=== PATIENT | male | born 1980 | race Caucasian/White ===

== ENCOUNTER 2016-09-12 06:34 | Emergency (ER) | payer OTHER, MEDICARE ==
--- NOTE | 2016-09-12 07:28 | ER Document Report ---
HPI - HPI Pain Level: 5 Context: 36 yo male with hx/o chronic back pain, TMJ c/o severe right jaw pain x 2 days. Taking regular pain meds without relief. pt had similar pain 1 month ago. Treated at Urgent Care with abx without relief. Pt denies any dental pain or gingival swelling today. No fever Associated Symptoms: None Exacerbated by: Denies Relieved by: Denies Similar symptoms previously: Yes Recently seen / treated by doctor: No - CONSTITUTIONAL Constitutional: DENIES: Fever, Chills - DERM Skin Color: Normal, [place] Past Medical History - General Information source: Patient - Social History Smoking Status: Never Smoker Frequency of alcohol use: Occasional Drug Abuse: None Lives with: Family Family History: Reviewed & Not Pertinent Patient has suicidal ideation: No Patient has homicidal ideation: No - Past Medical History Cardiac Medical History: Reports: Hx Hypercholesterolemia Denies: Hx Coronary Artery Disease, Hx Heart Attack, Hx Hypertension Pulmonary Medical History: Denies: Hx Asthma - smokers cough green/brown phlegm, Hx Bronchitis, Hx COPD , Hx Pneumonia Neurological Medical History: Reports: Hx Migraine. Denies: Hx Cerebrovascular Accident, Hx Seizures Renal/ Medical History: Denies: Hx Peritoneal Dialysis Musculoskeltal Medical History: Reports Hx Arthritis - back,left knee Past Surgical History: Reports: Hx Orthopedic Surgery - bones removed from R small toe - Immunizations Hx Diphtheria, Pertussis, Tetanus Vaccination: Yes Vertical Provider Document - CONSTITUTIONAL Agree With Documented VS: Yes - INFECTION CONTROL TRAVEL OUTSIDE OF THE [place] IN LAST 30 DAYS: No - HEENT HEENT: Atraumatic, PERRLA Notes: focal pain over left TMJ.+ click. mild swellling. - NECK Neck: Normal Inspection, Supple - RESPIRATORY Respiratory: Breath Sounds Normal, No Respiratory Distress O2 Sat by Pulse Oximetry: 97 - CARDIOVASCULAR Cardiovascular: Regular Rate, Regular Rhythm - GI/ABDOMEN Gastrointestinal: Abdomen Soft - NEURO Level of Consciousness: Awake, Alert, Appropriate - DERM Integumentary: Warm, Dry Course - Re-evaluation Re-evalutation: 09/12/16 07:28 36yo male, tearful, in moderate distress. H&P c/w TMJ. pain not controlled with normal medications 09/12/16 07:36 recommend to increase percocet to 10mg q4prn. follow up with dental for further evaluation and treatment. notify pain management of temporary med increase 09/12/16 07:40 no indication of dental infection on exam - Vital Signs Vital signs: Temp Pulse Resp BP Pulse Ox 97.2 F 85 18 132/86 H 97 09/12/16 06:41 09/12/16 06:41 09/12/16 06:41 09/12/16 06:41 09/12/16 06:41 Discharge - Discharge Clinical Impression: TMJ (temporomandibular joint disorder) Condition: Stable Disposition: HOME, SELF-CARE Instructions: Temporomandibular Joint Syndrome ([facility]), Oral Narcotic Medication ([facility]), Steroid Medication, Warm Packs ([facility]) Additional Instructions: Recommend increasing Percocet to 10mg every 4h until pain eases. Notify pain management immediately Follow up with dental for further evaluation and treatment Prescriptions: Prednisone [Deltasone 20 mg Tablet] 3 tab PO DAILY 5 Days
[2016-09-12 07:56] VITALS: BP 148/89
== END 2016-09-12 07:52 | disposition home or self-care (01) ==
LOC: ER 06:34
DX: M26.621 Arthralgia of right temporomandibular joint (principal); R22.0 Localized swelling, mass and lump, head
CPT/HCPCS: 99283

== ENCOUNTER 2016-12-26 15:16 | Emergency (ER) | payer MEDICARE, OTHER ==
[2016-12-26] MEDS ORDERED: KETOROLAC TROMETHAMINE INJ/PF 30 MG/1 ML SDV IV ONE (15:37)
[2016-12-26] MEDS ORDERED: NORMAL SALINE 1000 ML 1,000 ML IV ONE (15:37)
--- NOTE | 2016-12-26 15:40 | ER Document Report ---
ED Medical Screen (RME) - General Chief Complaint: Abdominal Pain Stated Complaint: ABDOMINAL PAIN/DIARRHEA Time Seen by Provider: 12/26/16 15:36 Mode of Arrival: Ambulatory Information source: Patient - pt. with L inguinal hernia repair several months ago. Has been having increasing lower abdominal pain with diarrhea over the past 4-5 days with possible blood in BM's. TRAVEL OUTSIDE OF THE [place] IN LAST 30 DAYS: No - Related Data Allergies/Adverse Reactions: No Known Allergies Allergy (Verified 12/26/16 15:24) Past Medical History - Past Medical History Cardiac Medical History: Reports: Hx Hypercholesterolemia Denies: Hx Coronary Artery Disease, Hx Heart Attack, Hx Hypertension Pulmonary Medical History: Denies: Hx Asthma - smokers cough green/brown phlegm, Hx Bronchitis, Hx COPD , Hx Pneumonia Neurological Medical History: Reports: Hx Migraine. Denies: Hx Cerebrovascular Accident, Hx Seizures Renal/ Medical History: Denies: Hx Peritoneal Dialysis Musculoskeltal Medical History: Reports Hx Arthritis - back,left knee Past Surgical History: Reports: Hx Orthopedic Surgery - bones removed from R small toe - Immunizations Hx Diphtheria, Pertussis, Tetanus Vaccination: Yes Physical Exam - Vital signs Vitals: Temp Pulse Resp BP Pulse Ox 97.9 F 84 20 113/72 98 12/26/16 15:21 12/26/16 15:21 12/26/16 15:21 12/26/16 15:21 12/26/16 15:21 Course - Vital Signs Vital signs: Temp Pulse Resp BP Pulse Ox 97.9 F 84 20 113/72 98 12/26/16 15:21 12/26/16 15:21 12/26/16 15:21 12/26/16 15:21 12/26/16 15:21
[2016-12-26 16:26] LABS: ABSOLUTE BASOPHILS # (AUTO) 0.1 10^3/uL (0.0-0.2); ABSOLUTE EOSINOPHILS # (AUTO) 0.2 10^3/uL (0.0-0.6); ABSOLUTE LYMPHOCYTES (AUTO) 4.3 10^3/uL (0.5-4.7); ABSOLUTE MONOCYTES (AUTO) 1.1 10^3/uL (0.1-1.4); ABSOLUTE NEUT (AUTO) 6.7 10^3/uL (1.7-8.2); BASOPHILS % (AUTO) 0.6 % (0-2); EOSINOPHILS % (AUTO) 1.2 % (0-6); HEMATOCRIT 50.3 % (37.9-51.0); HEMOGLOBIN 16.8 g/dL (13.5-17.0); HGB HCT DIFFERENCE 0.1; MEAN CORPUSCULAR HEMOGLOBIN 30.8 pg (27.0-33.4); MEAN CORPUSCULAR HGB CONC 33.3 g/dL (32.0-36.0); MEAN CORPUSCULAR VOLUME 93 fl (80-97); MONOCYTES % (AUTO) 8.6 % (3-13); RED BLOOD COUNT 5.43 10^6/uL (4.35-5.55); RED CELL DISTRIBUTION WIDTH 13.6 % (11.5-14.0); SEGMENTED NEUTROPHILS % (AUTO) 54.6 % (42-78); WHITE BLOOD COUNT 12.2 10^3/uL (4.0-10.5)
[2016-12-26 16:31] LABS: APPEARANCE,URINE SLIGHTLY-CLOUDY; BILIRUBIN,URINE SMALL (NEGATIVE); GLUCOSE, URINE NEGATIVE (NEGATIVE); KETONES,URINE NEGATIVE (NEGATIVE); LEUKOCYTE ESTERASE,URINE NEGATIVE (NEGATIVE); NITRITE,URINE NEGATIVE (NEGATIVE); PROTEIN,URINE 30 mg/dL (NEGATIVE); URINE SPECIFIC GRAVITY 1.035; UROBILINOGEN,URINE NEGATIVE mg/dL (<2.0)
[2016-12-26 17:51] LABS: ALANINE AMINOTRANSFERASE 80 U/L (21-72); ALBUMIN 3.8 g/dL (3.5-5.0); ALKALINE PHOSPHATASE 100 U/L (38-126); ANION GAP 9 (5-19); ASPARTATE AMINO TRANSFERASE 60 U/L (17-59); BILIRUBIN,DIRECT 0.4 mg/dL (0.0-0.4); BILIRUBIN,TOTAL 0.6 mg/dL (0.2-1.3); BLOOD UREA NITROGEN 16 mg/dL (7-20); CALCIUM 9.5 mg/dL (8.4-10.2); CARBON DIOXIDE 27 mmol/L (22-30); CHLORIDE 104 mmol/L (98-107); GLUCOSE 84 mg/dL (75-110); LIPASE 57.9 U/L (23-300); POTASSIUM 4.3 mmol/L (3.6-5.0); SODIUM 139.5 mmol/L (137-145); TOTAL PROTEIN 6.9 g/dL (6.3-8.2)
--- NOTE | 2016-12-26 18:28 | ER Document Report ---
ED GI/ - General Chief Complaint: Abdominal Pain Stated Complaint: ABDOMINAL PAIN/DIARRHEA Time Seen by Provider: 12/26/16 15:36 Mode of Arrival: Ambulatory Information source: Patient TRAVEL OUTSIDE OF THE [place] IN LAST 30 DAYS: No - HPI Patient complains to provider of: Abdominal pain, Diarrhea Onset: Other - 4-5 days Quality of pain: Achy, Cramping, Stabbing Severity at maximum: Moderate Severity in ED: Mild, Moderate Pain Level: 4 Location: Suprapubic Associated symptoms: Diarrhea, Nausea Exacerbated by: Denies Relieved by: Denies Similar symptoms previously: No Recently seen / treated by doctor: No Notes: 12/26/16 18:23 Patient is a 36-year-old male with a history of chronic pain, as well as a small left inguinal hernia with previous repair, who presents to the emergency room for 4-5 day of diarrhea with crampy abdominal pain which is stabbing at times generally right before having a bowel movement, he reports an intense pressure in his suprapubic region, which is only relieved by having a bowel movement, he does report that his bowel movements have been consistent with undigested food, he denies any mucus in it, it was read colored 4-5 days ago but he states he was drinking a lot of red colored crystallite at that time, he is unaware of any actual blood in his stools, no sick contacts, no questionable food intake recently, no traveling, no recent antibiotic - Related Data Allergies/Adverse Reactions: No Known Allergies Allergy (Verified 12/26/16 15:24) Past Medical History - General Information source: Patient - Social History Smoking Status: Current Every Day Smoker Chew tobacco use (# tins/day): No Frequency of alcohol use: None Drug Abuse: None Family History: Reviewed & Not Pertinent Patient has suicidal ideation: No Patient has homicidal ideation: No - Past Medical History Cardiac Medical History: Reports: Hx Hypercholesterolemia Denies: Hx Coronary Artery Disease, Hx Heart Attack, Hx Hypertension Pulmonary Medical History: Denies: Hx Asthma - smokers cough green/brown phlegm, Hx Bronchitis, Hx COPD , Hx Pneumonia Neurological Medical History: Reports: Hx Migraine. Denies: Hx Cerebrovascular Accident, Hx Seizures Renal/ Medical History: Denies: Hx Peritoneal Dialysis Musculoskeltal Medical History: Reports Hx Arthritis - back,left knee Past Surgical History: Reports: Hx Orthopedic Surgery - bones removed from R small toe - Immunizations Hx Diphtheria, Pertussis, Tetanus Vaccination: Yes Review of Systems - Review of Systems Constitutional: No symptoms reported EENT: No symptoms reported Cardiovascular: No symptoms reported Respiratory: No symptoms reported Gastrointestinal: See HPI Genitourinary: No symptoms reported Male Genitourinary: No symptoms reported Musculoskeletal: No symptoms reported Skin: No symptoms reported Hematologic/Lymphatic: No symptoms reported Neurological/Psychological: No symptoms reported -: Yes All other systems reviewed and negative Physical Exam - Vital signs Vitals: Temp Pulse Resp BP Pulse Ox 97.9 F 84 20 113/72 98 12/26/16 15:21 12/26/16 15:21 12/26/16 15:21 12/26/16 15:21 12/26/16 15:21 Interpretation: Normal - General General appearance: Appears well, Alert - HEENT Head: Normocephalic, Atraumatic Eyes: Normal Pupils: PERRL - Respiratory Respiratory status: No respiratory distress Chest status: Nontender Breath sounds: Normal Chest palpation: Normal - Cardiovascular Rhythm: Regular Heart sounds: Normal auscultation Murmur: No - Abdominal Inspection: Normal Distension: No distension Bowel sounds: Normal Tenderness: Tender - Mild suprapubic tenderness Organomegaly: No organomegaly - Back Back: Normal, Nontender - Extremities General upper extremity: Normal inspection, Nontender, Normal color, Normal ROM , Normal temperature General lower extremity: Normal inspection, Nontender, Normal color, Normal ROM , Normal temperature, Normal weight bearing. No: Annelise's sign - Neurological Neuro grossly intact: Yes Cognition: Normal Orientation: AAOx4 [place] Coma Scale Eye Opening: Spontaneous [place] Coma Scale Verbal: Oriented [place] Coma Scale Motor: Obeys Commands [place] Coma Scale Total: 15 Speech: Normal Motor strength normal: LUE, RUE, LLE, RLE Sensory: Normal - Psychological Associated symptoms: Normal affect, Normal mood - Skin Skin Temperature: Warm Skin Moisture: Dry Skin Color: Normal Course - Re-evaluation Re-evalutation: 12/26/16 18:25 Imaging findings were discussed with patient at bedside which are relatively unremarkable, he is noted to have a small fat-containing left-sided inguinal hernia which he is aware of and has follow-up with surgery for, he is also noted mild elevation in his AST and ALT which he reports a history of as well, which is generally contributed to fatty liver disease, patient is otherwise resting comfortably, with stable vital signs and in no acute distress, symptoms are likely viral in nature, he will be discharged with prescription for Bentyl as well as Zofran Dosepak and advised to follow-up with his primary care provider or return if symptoms worsen, patient acknowledges understanding and agreement with this plan - Vital Signs Vital signs: Temp Pulse Resp BP Pulse Ox 97.9 F 84 20 113/72 98 12/26/16 15:21 12/26/16 15:21 12/26/16 15:21 12/26/16 15:21 12/26/16 15:21 - Laboratory Result Diagrams: 12/26/16 16:00 12/26/16 17:19 Laboratory results interpreted by me: 12/26/16 12/26/16 12/26/16 16:00 16:00 17:19 WBC 12.2 H AST 60 H ALT 80 H Urine Protein 30 H Urine Bilirubin SMALL H - Diagnostic Test Radiology reviewed: Image reviewed, Reports reviewed Discharge - Discharge Clinical Impression: Hernia, inguinal, left Abdominal pain Qualifiers: Abdominal location: lower abdomen, unspecified Qualified Code(s): R10.30 - Lower abdominal pain, unspecified Diarrhea Qualifiers: Diarrhea type: unspecified type Qualified Code(s): R19.7 - Diarrhea, unspecified Condition: Stable Disposition: HOME, SELF-CARE Instructions: Abdominal Pain ([facility]), Antispasmodics ([facility]), Antinausea Medication ([facility]) Additional Instructions: Follow up with your primary care provider in one to 2 days. Return to the emergency room immediately if symptoms worsen or any additional concerns. Prescriptions: Dicyclomine HCl [Bentyl 20 mg Tablet] 20 mg PO QID #120 tablet
[2016-12-26 19:06] VITALS: BP 118/78
== END 2016-12-26 19:04 | disposition home or self-care (01) ==
LOC: ER 15:16
DX: K40.91 Unilateral inguinal hernia, without obstruction or gangrene, recurrent (principal); R19.7 Diarrhea, unspecified; R10.30 Lower abdominal pain, unspecified; R11.0 Nausea; F17.200 Nicotine dependence, unspecified, uncomplicated; R74.8 Abnormal levels of other serum enzymes
CPT/HCPCS: 99284; 96374; 36415; 83690; 85025; 80053; 81001; 74177; J1885; J7030

== ENCOUNTER → 2017-11-30 | Day surgery (SDC) | payer MEDICARE, OTHER ==
[~2017-11-30] MED LIST: BUPIVACAINE HCL 0.5 % INJ/PF 30 ML SDV ONE; LIDOCAINE 2% INJ (20 MG/ML) 20 ML MDV ONE; METHYLPREDNISOLONE ACETATE INJ 40 MG/1 ML ML ONE
--- NOTE | 2017-11-30 10:02 | Operative Report ---
PREOPERATIVE DIAGNOSIS: Lumbar Spondylosis POSTOPERATIVE DIAGNOSIS: Lumbar Spondylosis PROCEDURE: Radiofrequency Ablation of medial branches - Bilateral L4 and L5 MBN DATE OF PROCEDURE: [11/30/17] ANESTHESIA: [local, po valium] COMPLICATIONS: [none] CONSENT: A full description of the procedure was provided including benefits as well as possible complications. All questions were answered and informed consent was given and signed. ASA guidelines for fasting were verified prior to sedation. PROCEDURE IN DETAIL The patient was brought into the fluoroscopy suite and positioned into the prone position on the fluoroscopy table and allowed to adjust to a position of comfort. A grounding pad was placed on the [LEFT] thigh. The lumbar region was widely prepped with a chloraprep solution, allowed to air dry and draped in standard sterile surgical fashion. Local anesthesia was provided by [1] mL of [1 ]% [lidocaine]delivered with a 25 g needle. A 17g 75mm radiofrequency introducer needle was placed to the planned anatomic targets guided with intermittent fluoroscopy with a perpendicular approach to terminally place at the junction of the superior articular process and the transverse process of the [RIGHT] L5 (L4 MBN) and the base of the sacral ala on the [RIGHT] for the L5 medial branch nerve. The stylets were removed and radiofrequency probes with a 4mm active tip were then inserted. Needle tip position of the probes was verified in the AP, oblique, and lateral views. At each site, the medial branch nerve was stimulated at 2 Hz to a maximum 1-2 volts determined to finalize safe needle and electrode placement. The patient was awake and responsive during this portion of the procedure. Each target was anesthetized with 1-2 mL of [2]% [lidocaine] for anesthesia for lesioning and then each target was lesioned at 80 degrees Celsius for 2 minutes and 30 seconds. Tissue impedences were noted to be between 250 and 500 Ohms. The procedure was performed in the exact same manner on the Left at the same level. After RFA, a solution of 1 cc of 0.25% marcaine and 40mg depomedrol was injected. Electrodes and needles were then removed and bandages placed over the needle placement sites, the patient then returned to the supine position on a stretcher and transported to the recovery room without hemodynamic, neurologic, or allergic reactions. Fluoroscopic images were printed for hard copy recording and digitally archived. POST PROCEDURE EVALUATION: The patient was comfortable in the recovery room. The patient is aware that pain may worsen before remitting and 4 6 weeks may be required prior to the onset of pain relief. IMPRESSION: 1. Technically successful [Bilateral] L4 L5 medial branch radiofrequency neurotomy for denervation without complication. 2. RTC in [6] weeks. 3. Estimated Blood Loss: [1 ml]
== END ==
LOC: RAD 08:55
PROVIDERS: ATTEND Student in an Organized Health Care Education/Training Program
DX: M47.817 Spondylosis without myelopathy or radiculopathy, lumbosacral region (principal)
CPT/HCPCS: 64635; 64636; J3490 ×2; J1020

== ENCOUNTER 2018-05-13 05:35 | Day surgery (SDC) | payer MEDICARE, OTHER ==
--- NOTE | 2018-05-06 09:40 | RADIOLOGY REPORT (SQ) ---
EXAM DESCRIPTION: CHEST PA/LATERAL COMPLETED DATE/TIME: 05/06/2018 9:25 am REASON FOR STUDY: PRE-OP COMPARISON: 05/31/2015 EXAM PARAMETERS: NUMBER OF VIEWS: two views TECHNIQUE: Digital Frontal and Lateral radiographic views of the chest acquired. RADIATION DOSE: NA LIMITATIONS: none FINDINGS: LUNGS AND PLEURA: No opacities, masses or pneumothorax. No pleural effusion. MEDIASTINUM AND HILAR STRUCTURES: No masses or contour abnormalities. HEART AND VASCULAR STRUCTURES: Heart normal size. No evidence for failure. BONES: No acute findings. HARDWARE: None in the chest. OTHER: No other significant finding. IMPRESSION: NO SIGNIFICANT RADIOGRAPHIC FINDING IN THE CHEST. TECHNICAL DOCUMENTATION: JOB ID: [id number] [employer]- All Rights Reserved Reading location - IP/workstation name: [email or web address]
[2018-05-06 09:51] LABS: HEMATOCRIT 44.2 % (37.9-51.0); HEMOGLOBIN 15.3 g/dL (13.5-17.0); MEAN CORPUSCULAR HEMOGLOBIN 31.7 pg (27.0-33.4); MEAN CORPUSCULAR HGB CONC 34.7 g/dL (32.0-36.0); MEAN CORPUSCULAR VOLUME 91 fl (80-97); PLATELET COUNT 296 10^3/uL (150-450); RED BLOOD COUNT 4.84 10^6/uL (4.35-5.55); RED CELL DISTRIBUTION WIDTH 13.5 % (11.5-14.0); WHITE BLOOD COUNT 10.2 10^3/uL (4.0-10.5)
[2018-05-06 10:36] LABS: ALANINE AMINOTRANSFERASE 68 U/L (21-72); ALBUMIN 4.3 g/dL (3.5-5.0); ALKALINE PHOSPHATASE 100 U/L (38-126); ANION GAP 9 (5-19); ASPARTATE AMINO TRANSFERASE 55 U/L (17-59); BILIRUBIN,DIRECT 0.3 mg/dL (0.0-0.4); BILIRUBIN,TOTAL 0.3 mg/dL (0.2-1.3); BLOOD UREA NITROGEN 11 mg/dL (7-20); CARBON DIOXIDE 31 mmol/L (22-30); CHLORIDE 98 mmol/L (98-107); GLUCOSE 170 mg/dL (75-110); POTASSIUM 4.6 mmol/L (3.6-5.0); SODIUM 138.2 mmol/L (137-145); TOTAL PROTEIN 7.5 g/dL (6.3-8.2)
--- NOTE | 2018-05-06 20:55 | EKG REPORT ---
SEVERITY:- NORMAL ECG - SINUS RHYTHM ST ELEV, PROBABLE NORMAL EARLY REPOL PATTERN : Confirmed by: Sarah Bush MD 06-May-2018 20:54:26
[~2018-05-13 05:35] MED LIST changes: -BUPIVACAINE HCL 0.5 % INJ/PF 30 ML SDV ONE; +CEFAZOLIN 2 GM/D5W RTU 2 GM/50 ML RTUPB IV ONE; +CEFAZOLIN 2 GM/D5W RTU 2 GM/50 ML RTUPB IV PRN; +LACTATED RINGERS 1000 ML IV PRN; +LIDOCAINE 0.5% INJ-PF (5 MG/ML) 50 ML SDV SUBCUT PRN; -LIDOCAINE 2% INJ (20 MG/ML) 20 ML MDV ONE; -METHYLPREDNISOLONE ACETATE INJ 40 MG/1 ML ML ONE
[2018-05-13] MEDS ORDERED: MIDAZOLAM 2 MG/2 ML INJ ONE (06:19)
[2018-05-13] MEDS ORDERED: LIDOCAINE 2% INJ-PF (20 MG/ML) 10 ML AMPUL ONE (06:19)
[2018-05-13] MEDS ORDERED: DEXAMETHASONE SOD PHOSPHATE INJ 4 MG/1 ML VIAL ONE (06:19)
[2018-05-13] MEDS ORDERED: FENTANYL CITRATE INJ/PF 250 MCG/5 ML AMPULE ONE (06:19)
[2018-05-13] MEDS ORDERED: ONDANSETRON HCL INJ/PF 4 MG/2 ML SDV ONE (06:20)
[2018-05-13] MEDS ORDERED: ACETAMINOPHEN 1,000 MG/100 ML RTUPB IV ONE (06:20)
[2018-05-13] MEDS ORDERED: PROPOFOL INJ 200 MG/20 ML VIAL IV ONE (06:20)
[2018-05-13] MEDS ORDERED: ALBUTEROL SULFATE 0.083% NEB 2.5 MG/3 ML AMPUL NEB ONE (06:33)
[2018-05-13] MEDS ORDERED: SUGAMMADEX SODIUM 200 MG/2 ML SDV IV ONE (06:44)
[2018-05-13] MEDS ORDERED: BUPIVACAINE HCL 0.5 % INJ/PF 30 ML SDV ONE (06:49)
[2018-05-13] MEDS ORDERED: FENTANYL CITRATE INJ/PF 100 MCG/2 ML AMPUL IV PRN ×6 (08:30→11:48)
[2018-05-13] MEDS ORDERED: PROMETHAZINE HCL INJ 25 MG/1 ML VIAL IV PRN ×4 (08:30→11:48)
[2018-05-13] MEDS ORDERED: MEPERIDINE HCL/PF INJ 25 MG/1 ML DISP.SYRIN IV PRN ×2 (08:30→11:48)
[2018-05-13] MEDS ORDERED: DIPHENHYDRAMINE HCL 50 MG/ML VIAL IV PRN ×2 (08:30→11:48)
[2018-05-13] MEDS ORDERED: ONDANSETRON HCL INJ/PF 4 MG/2 ML SDV IV PRN ×2 (08:30→11:48)
[2018-05-13] MEDS ORDERED: MORPHINE SULFATE 10 MG/ML INJ IV PRN ×2 (08:30→11:48)
[2018-05-13] MEDS ORDERED: SUCCINYLCHOLINE CHLORIDE INJ 200 MG/10 ML VIAL ONE (09:13)
[2018-05-13] MEDS ORDERED: ROCURONIUM BROMIDE INJ 50 MG/5 ML VIAL IV ONE (09:13)
--- NOTE | 2018-05-13 11:11 | Discharge Summary ---
Discharge Summary (SDC) - Discharge Final Diagnosis: Recurrent left inguinal hernia, initial right inguinal hernia, periumbilical incisional hernia. Date of Surgery: 05/13/18 Discharge Date: 05/13/18 Condition: Stable Treatment or Instructions: Discharge home. Diet as tolerated. Activity: No lifting greater than 10 pounds x 6 weeks. Follow up with me in 7-10 days. [place] 10/325 mg p.o. every 6 hours as needed pain. Ibuprofen 800 mg p.o. 3 times daily with meals (OTC). Okay to shower on Wednesday. No tub baths or swimming times 2 weeks. Referrals: ELA HANSON DO [Primary Care Provider] - Discharge Diet: As Tolerated Respiratory Treatments at Home: Deep Breathing/Coughing, Incentive Spirometer Discharge Activity: No Lifting Over 10 Pounds Home Care Assistance: None Needed Report the Following to Your Physician Immediately: Shortness of Breath, Nausea , Vomiting, Increase in Pain, Fever over 101 Degrees, Unusual Bleeding, Redness , Swelling, Warmth, Increased Soreness
[2018-05-13] MEDS: FENTANYL CITRATE INJ/PF 100 MCG/2 ML AMPUL ONE ×2 (11:20→11:46)
[2018-05-13] MEDS ORDERED: KETOROLAC TROMETHAMINE INJ/PF 30 MG/1 ML SDV ONE (11:45)
[2018-05-13] MEDS ORDERED: HYDROCODONE/ACETAMINOPHEN 10-325 MG TABLET PO PRN (12:11)
[2018-05-13] MEDS ORDERED: HYDROCODONE/ACETAMINOPHEN 10-325 MG TABLET ONE (12:31)
[2018-05-13] MEDS ORDERED: IBUPROFEN 800 MG TABLET PO SCH (14:00)
[2018-05-13 14:45] VITALS: BP 126/76
--- NOTE | 2018-05-16 14:14 | Operative Report ---
Nonrecallable Operative Report DATE OF SURGERY: 05/13/18 PREOPERATIVE DIAGNOSIS: 1. Recurrent left inguinal hernia. 2. Initial right inguinal hernia. 3. Incisional, periumbilical ventral hernia. POSTOPERATIVE DIAGNOSIS: Same as above OPERATION: 1. Robot-assisted laparoscopic bilateral inguinal hernia repair with mesh. 2. Open umbilical hernia repair with mesh. SURGEON: DENNIS DAVILA ANESTHESIA: GA TISSUE REMOVED OR ALTERED: None COMPLICATIONS: None apparent ESTIMATED BLOOD LOSS: Minimal PROCEDURE: Drains/implants: 1. right-sided large 3 DMax inguinal hernia mesh. 2. Left-sided large 3 DMax inguinal hernia mesh. 3. 6.[address] hernia patch. Procedure in detail: After informed consent was obtained, the patient was brought to the operating room and laid in the supine position. The area of the abdomen was prepped and draped in a normal sterile fashion. An incision was created within the bounds of a previous supraumbilical incision. Dissection was carried down through the subcutaneous tissue using sharp dissection. The periumbilical incisional hernia was identified and opened. It contained preperitoneal fat. The abdomen was then entered through the hernia defect. The balloon trocar was inserted, and pneumoperitoneum was achieved. Right and left lateral abdominal wall 8 mm robotic trochars were placed under direct laparoscopic visualization. Once this was completed, the robot was brought over the patient and docked appropriately. Dissection was begun in the left groin, as it was the area of recurrence. Dissection was begun 2-3 cm superior to the defect. Peritoneum was scored and opened. A preperitoneal dissection was then undertaken. This was done with great care and was moderately difficult. There was a large amount of scar tissue in the area. The cord structures and old hernia mesh were identified. It appeared that the hernia recurrence had occurred inferior to the mesh. Secondary to that, it was not felt that the mesh needed to be completely excised. The area laterally was completely opened. The medial dissection was somewhat difficult. It was felt that opening the right side would help to complete the medial dissection. Attention was then turned to opening of the right side. The peritoneum was scored 2-3 cm superior to the indirect inguinal hernia defect. Dissection was carried through the preperitoneal plane using sharp dissection, blunt dissection , and electrocautery. The planes on the right side were previously undisturbed , and the dissection was much easier. The dissection was carried medially, so that it connected with the left sided dissection. A large lipoma of the cord was reduced back into the abdominal cavity. The hernia sac was freed from the cord structures, taking great care not to injure the cord structures. Once this was completed attention was again turned to the left side. A left sided large 3 DMax inguinal hernia mesh was placed into the abdominal cavity. After adequate dissection was completed medially the hernia mesh was placed into the preperitoneal space on the left. It was sutured to the pubis medially, to Thomas's ligament medially, and to the internal oblique fascia superiorly. The peritoneum was then closed using 2-0 V lock suture in simple running fashion. Once this was completed, attention was turned to placement of the right-sided mesh. A large right-sided 3D max inguinal hernia mesh was placed into the peritoneal cavity. It was then situated into the preperitoneal space. It was sutured medially and superiorly using 2-0 Vicryl suture. Once the mesh was completely sutured, the peritoneum was closed using 2-0 V lock suture in simple running fashion. Once this was completed, the repairs were inspected. They were found to be in good order. The robot was then undocked. The robotic trochars were removed. Attention was then turned to closure of the umbilical hernia defect. The umbilical hernia defect was large enough to require a mesh for closure. A 6.[address] hernia mesh was chosen to adequately cover the defect. The mesh was placed in the preperitoneal space. The mesh was sutured into place using 0 Prolene mattress, trans-fascial sutures. Once this was completed the overlying fascia was closed using 0 Prolene suture in [id number] fashion. The cicatrix was tacked to the abdominal fascia using 0 Vicryl suture. The overlying skin was closed using 4-0 Vicryl Rapide suture in subcuticular fashion. A dressing was placed, and the procedure was concluded. All sponge, instrument, and needle counts were correct x2. Condition: Stable.
== END 2018-05-13 13:15 | disposition home or self-care (01) ==
LOC: OROUT 05:35
PROVIDERS: ATTEND Surgery
DX: K40.91 Unilateral inguinal hernia, without obstruction or gangrene, recurrent (principal); K40.90 Unilateral inguinal hernia, without obstruction or gangrene, not specified as recurrent; K43.2 Incisional hernia without obstruction or gangrene; J45.909 Unspecified asthma, uncomplicated; F17.210 Nicotine dependence, cigarettes, uncomplicated; F32.9 Major depressive disorder, single episode, unspecified; Z79.899 Other long term (current) drug therapy
CPT/HCPCS: 49560; 49568; 49650; 49651; S2900; 36415; 71046; 80053; 840; 85027; 93005; 93010; 94640; C1781; J0131; J0330; J0690; J1100; J1885; J2250; J2405; J2704; J3010; J3490

== ENCOUNTER → 2020-01-16 | Outpatient (CLI) | payer MEDICARE, OTHER ==
--- NOTE | 2020-01-16 10:42 | RADIOLOGY REPORT (SQ) ---
EXAM DESCRIPTION: CT ABD/PELVIS ORAL ONLY IMAGES COMPLETED DATE/TIME: 01/16/2020 7:25 am REASON FOR STUDY: UNSPECIFIED ABDOMINAL PAIN R10.9 UNSPECIFIED ABDOMINAL PAIN COMPARISON: None. TECHNIQUE: CT scan of the abdomen and pelvis performed with oral contrast and no intravenous contras t. Images reviewed with lung, soft tissue, and bone windows. Reconstructed coronal and sagittal MPR i mages reviewed. All images stored on PACS. All CT scanners at this facility use dose modulation, iterative reconstruction, and/or weight based d osing when appropriate to reduce radiation dose to as low as reasonably achievable (ALARA). [facility]: Dose Right [facility]: CareDose [facility]: Dose Right [facility]: Teradose 4D [facility]: Simphatic RADIATION DOSE: CT Rad equipment meets quality standard of care and radiation dose reduction techniq ues were employed. CTDIvol: 11.0 mGy. DLP: 623 mGy-cm.mGy. LIMITATIONS: None. FINDINGS: LOWER CHEST: No significant findings. No nodules or infiltrates. NON-CONTRASTED LIVER, SPLEEN, ADRENALS: Evaluation limited by lack of IV contrast. No identified sign ificant masses. PANCREAS: No masses. No peripancreatic inflammatory changes. GALLBLADDER: No identified stones by CT criteria. No inflammatory changes to suggest cholecystitis. RIGHT KIDNEY AND URETER: No solid masses. No significant calcification. No hydronephrosis or hydroure ter. LEFT KIDNEY AND URETER: No solid masses. No significant calcification. No hydronephrosis or hydrouret er. AORTA AND RETROPERITONEUM: No aneurysm. No retroperitoneal masses or adenopathy. BOWEL AND PERITONEAL CAVITY: No obvious masses or inflammatory changes. No free fluid. APPENDIX: Normal. PELVIS, BLADDER, AND ABDOMINAL WALL: Small fat containing left inguinal hernia. BONES: No significant findings. OTHER: No other significant finding. IMPRESSION: Small left inguinal hernia containing fat. TECHNICAL DOCUMENTATION: JOB ID: [id number] Quality ID # [id number]: Final reports with documentation of one or more dose reduction techniques (e.g., Au tomated exposure control, adjustment of the mA and/or kV according to patient size, use of iterative reconstruction technique) 2010 [employer]- All Rights Reserved Reading location - IP/workstation name: [email or web address]
== END ==
LOC: RAD 07:12
PROVIDERS: ATTEND Surgery
DX: R10.9 Unspecified abdominal pain (principal); R43.2 Parageusia
CPT/HCPCS: 74176

== ENCOUNTER 2020-04-16 05:32 | Day surgery (SDC) | payer MEDICARE, OTHER ==
[2020-03-28 12:47] LABS: HEMATOCRIT 45.1 % (37.9-51.0); HEMOGLOBIN 15.3 g/dL (13.5-17.0); MEAN CORPUSCULAR HEMOGLOBIN 31.8 pg (27.0-33.4); MEAN CORPUSCULAR HGB CONC 34.1 g/dL (32.0-36.0); MEAN CORPUSCULAR VOLUME 94 fl (80-97); PLATELET COUNT 289 10^3/uL (150-450); RED BLOOD COUNT 4.82 10^6/uL (4.35-5.55); RED CELL DISTRIBUTION WIDTH 14.3 % (11.5-14.0); WHITE BLOOD COUNT 10.3 10^3/uL (4.0-10.5)
[2020-03-28 13:10] LABS: ANION GAP 13 (5-19); BLOOD UREA NITROGEN 16 mg/dL (7-20); CARBON DIOXIDE 25 mmol/L (22-30); CHLORIDE 104 mmol/L (98-107); GLUCOSE 118 mg/dL (75-110); POTASSIUM 5.5 mmol/L (3.6-5.0)
--- NOTE | 2020-03-28 13:26 | RADIOLOGY REPORT (SQ) ---
EXAM DESCRIPTION: CHEST PA/LATERAL IMAGES COMPLETED DATE/TIME: 03/28/2020 11:19 am REASON FOR STUDY: PRE-0P COMPARISON: 05/31/2015 EXAM PARAMETERS: NUMBER OF VIEWS: two views TECHNIQUE: Digital Frontal and Lateral radiographic views of the chest acquired. RADIATION DOSE: NA LIMITATIONS: none FINDINGS: LUNGS AND PLEURA: Low lung volumes with resultant bronchovascular crowding. No opacities, masses or pneumothorax. No pleural effusion. MEDIASTINUM AND HILAR STRUCTURES: No masses or contour abnormalities. HEART AND VASCULAR STRUCTURES: Heart normal size. No evidence for failure. BONES: No acute findings. HARDWARE: None in the chest. OTHER: No other significant finding. IMPRESSION: NO SIGNIFICANT RADIOGRAPHIC FINDING IN THE CHEST. TECHNICAL DOCUMENTATION: JOB ID: [id number] 2010 [employer]- All Rights Reserved Reading location - IP/workstation name: [email or web address]
--- NOTE | 2020-03-28 18:38 | EKG REPORT ---
SEVERITY:- NORMAL ECG - SINUS RHYTHM : Confirmed by: Alanna Mckeon 28-Mar-2020 18:37:51
[~2020-04-16 05:32] MED LIST changes: +ACETAMINOPHEN 1,000 MG/100 ML RTUPB IV PRN; +CEFAZOLIN SODIUM 2 GM in DEXTROSE 5%-WATER 100 ML IV PRN; +IBUPROFEN 800 MG in NORMAL SALINE 250 ML IV PRN
[2020-04-16] MEDS ORDERED: ACETAMINOPHEN 1,000 MG/100 ML RTUPB IV ONE (06:47)
[2020-04-16] MEDS ORDERED: MIDAZOLAM 2 MG/2 ML INJ ONE (06:56)
[2020-04-16] MEDS ORDERED: DEXAMETHASONE SOD PHOSPHATE INJ 4 MG/1 ML VIAL ONE (06:56)
[2020-04-16] MEDS ORDERED: FENTANYL CITRATE INJ/PF 100 MCG/2 ML AMPUL ONE (06:56)
[2020-04-16] MEDS ORDERED: LIDOCAINE 2% INJ-PF (20 MG/ML) 10 ML AMPUL ONE (06:56)
[2020-04-16] MEDS ORDERED: HYDROMORPHONE HCL INJ/PF 2 MG/ML AMPULE ONE (06:57)
[2020-04-16] MEDS ORDERED: ONDANSETRON HCL INJ/PF 4 MG/2 ML SDV ONE (06:57)
[2020-04-16] MEDS ORDERED: PROPOFOL INJ 200 MG/20 ML VIAL IV ONE (06:57)
[2020-04-16] MEDS ORDERED: BUPIVACAINE HCL 0.25 % INJ/PF (2.5 MG/1 ML) 30 ML VIAL ONE (07:14)
[2020-04-16] MEDS ORDERED: KETAMINE HCL INJ 500 MG/10 ML VIAL ONE (08:24)
[2020-04-16] MEDS ORDERED: MEPERIDINE HCL/PF INJ 25 MG/1 ML DISP.SYRIN IV PRN (08:34)
[2020-04-16] MEDS ORDERED: HYDROMORPHONE HCL INJ/PF 2 MG/ML AMPULE IV PRN (08:34)
[2020-04-16] MEDS ORDERED: PROMETHAZINE HCL INJ 25 MG/1 ML VIAL IV PRN ×2 (08:34)
[2020-04-16] MEDS ORDERED: DIPHENHYDRAMINE HCL 50 MG/ML VIAL IV PRN (08:34)
[2020-04-16] MEDS ORDERED: FENTANYL CITRATE INJ/PF 100 MCG/2 ML AMPUL IV PRN ×3 (08:34)
[2020-04-16] MEDS ORDERED: OXYCODONE HCL IR 5 MG TABLET PO PRN (09:52)
--- NOTE | 2020-04-16 09:52 | Discharge Summary ---
Discharge Summary (SDC) - Discharge Final Diagnosis: Recurrent umbilical hernia Date of Surgery: 04/16/20 Discharge Date: 04/16/20 Condition: Stable Treatment or Instructions: Discharge home. Diet as tolerated. Activity: No lifting greater than 10 pounds x 6 weeks. Follow-up with me at [facility] in 7 to 10 days. Percocet per his pain management physician. Ibuprofen 800 mg p.o. 3 times daily with meals. Okay to shower starting on . Prescriptions: Ibuprofen [Motrin 800 mg Tablet] 800 mg PO Q8H PRN #42 tab PRN Reason: Referrals: ELA HANSON DO [Primary Care Provider] - Discharge Diet: As Tolerated Respiratory Treatments at Home: Deep Breathing/Coughing, Incentive Spirometer Discharge Activity: Balance Activity w/Rest, No Lifting Over 10 Pounds, No Lifting/Push/Pulling Home Care Assistance: None Needed Report the Following to Your Physician Immediately: Shortness of Breath, Nausea, Vomiting, Increase in Pain, Fever over 101 Degrees, Unusual Bleeding
--- NOTE | 2020-04-16 09:59 | Operative Report ---
Nonrecallable Operative Report DATE OF SURGERY: 04/16/20 PREOPERATIVE DIAGNOSIS: Recurrent umbilical hernia POSTOPERATIVE DIAGNOSIS: Same as above OPERATION: Robot assisted laparoscopic recurrent umbilical hernia repair with mesh SURGEON: DENNIS DAVILA 1ST NURSE MIDWIFE/CLINICAL INSTRUCTOR: LAURA COSTA ANESTHESIA: GA TISSUE REMOVED OR ALTERED: Old umbilical hernia mesh COMPLICATIONS: None apparent ESTIMATED BLOOD LOSS: Minimal PROCEDURE: Drains/implants: 10 x [address] hernia mesh. Procedure in detail: After informed consent was obtained, the patient was brought to the operating room and laid in the supine position. The area of the abdomen was prepped and draped in a normal sterile fashion. A left upper quadrant incision was created with a 15 blade scalpel. The 5 mm trocar and 5 mm camera were then inserted into the abdomen using the Optiview technique. Gas insufflation was attached, and pneumoperitoneum was achieved. The 12 mm left lateral trocar was then placed under direct laparoscopic visualization. A left lower quadrant 8 mm robotic trocar was placed under direct laparoscopic visualization. The 5 mm left upper quadrant trocar was removed, and replaced using the 8 mm robotic trocar. The robot was then brought over the patient and docked appropriately. I then assumed my position at the surgeon's console. Attention was turned to the periumbilical midline. Small bowel was densely adherent to the previously placed hernia mesh. Once the small bowel was removed away from the mesh (using sharp dissection only). The mesh was inspected. There was a recurrence at the superior portion of the mesh, as it had pulled away from the anterior abdominal wall. The old mesh was removed from the anterior abdominal wall using sharp dissection and electrocautery. Once this was completed, the recurrent defect was easily identified. The midline defect was small. It was closed using number 1V lock suture in simple running fashion. Next a 10 x [address] hernia mesh was chosen to adequately cover the defect. It was apposed to the anterior abdominal wall using the EPS. The mesh was sutured circumferentially using 2-0 VLock suture in simple running fashion. Once the mesh was affixed to the anterior abdominal wall, the robot was undocked. The old hernia mesh was extracted. Attention was then turned to closure. The 8 mm trocar sites were closed using 0 Vicryl suture in simple interrupted fashion. This was done with the aid of the William device. The 12 mm trocar was closed using 0 Vicryl suture in [id number] fashion with the aid of the Louie-Keesha device. Once this was completed, the skin was closed using 4-0 Vicryl Rapide suture in subcuticular fashion. Dressings were placed, and the procedure was concluded. All sponge, instrument, needle counts were correct x2. Condition: Stable. Laura Costa PA-C was scrubbed and present the entirety of the procedure. She assisted with all portions of the procedure including insertion of the trochars, docking of the robot, exchanging the robotic instruments, extraction of the old mesh, insertion of the new mesh, closure of the fascia, and closure of the skin.
[2020-04-16] MEDS: FENTANYL CITRATE INJ/PF 100 MCG/2 ML AMPUL ONE ×2 (10:28→10:33)
[2020-04-16] MEDS ORDERED: OXYCODONE HCL SR 10 MG TABLET PO ONE (11:01)
[2020-04-16 12:45] VITALS: BP 133/86
[2020-04-16] MEDS ORDERED: ROCURONIUM BROMIDE INJ 50 MG/5 ML VIAL IV ONE (14:42)
[2020-04-16] MEDS ORDERED: GLYCOPYRROLATE 1 MG/5 ML VIAL ONE (14:42)
[2020-04-16] MEDS ORDERED: SUCCINYLCHOLINE CHLORIDE INJ 200 MG/10 ML VIAL ONE (14:42)
[2020-04-16] MEDS ORDERED: NEOSTIGMINE METHYLSULFATE 10 MG/10 ML VIAL ONE (14:42)
== END 2020-04-16 12:00 | disposition home or self-care (01) ==
LOC: OROUT 05:32
PROVIDERS: ATTEND Surgery
DX: K42.9 Umbilical hernia without obstruction or gangrene (principal); F17.210 Nicotine dependence, cigarettes, uncomplicated; J45.909 Unspecified asthma, uncomplicated; K62.89 Other specified diseases of anus and rectum; Z79.899 Other long term (current) drug therapy; Z03.818 Encounter for observation for suspected exposure to other biological agents ruled out
CPT/HCPCS: 49652; S2900; 36415; 71046; 790; 80048; 85027; 87635; 93005; 93010; C1781; C9803; J0131; J0330; J0690; J1100; J1170; J1741; J2250; J2405; J2704; J2710; J3010; J3490; J7050; J7060